=== PATIENT | male | born 1950 | race Caucasian/White ===

== ENCOUNTER → 2023-09-18 08:32 | Outpatient (REF) | payer MEDICARE, SELFPAY | LOC: DHCBC MAIN 08:32 | PROVIDERS: ATTENDING PHYSICIAN Internal Medicine Cardiovascular Disease; FAMILY PHYSICIAN Family Medicine | DX: R94.39 Abnormal result of other cardiovascular function study (principal); I25.10 Atherosclerotic heart disease of native coronary artery without angina pectoris; I25.84 Coronary atherosclerosis due to calcified coronary lesion | CPT/HCPCS: 93306 ==